=== PATIENT | female | born 1995 ===

== ENCOUNTER 2023-04-17 05:50 | Day surgery (SDC) | payer OTHER | END 2023-04-17 10:50 | disposition home or self-care (01) | LOC: AMB-ENDOS 05:50 | PROVIDERS: ATTEND Surgery | DX: K29.60 Other gastritis without bleeding (principal); R10.13 Epigastric pain; K44.9 Diaphragmatic hernia without obstruction or gangrene; E66.09 Other obesity due to excess calories; Z20.822 Contact with and (suspected) exposure to COVID-19 ==